=== PATIENT | male | born 1965 | race Caucasian/White ===

== ENCOUNTER → 2016-12-11 | Day surgery (SDC) | payer OTHER ==
[~2016-12-11] VITALS: Ht 185.4 cm; Wt 139.0 kg
[2016-12-11 07:38] LABS: HCT 41.6 % (42.0-52.0); HGB 14.6 g/dl (13.2-18.0); MCH 31.8 pg (25.0-31.0); MCHC 35.1 g/dL (32.0-36.0); MCV 90.6 fL (78.0-100.0); MPV 9.1 fL (6.0-9.5); RBC 4.59 M/uL (4.70-6.00); RDW 11.9 % (11.5-14.0); WBC 7.3 K/uL (4.0-10.5)
[2016-12-11 07:50] LABS: CREATININE 0.9 mg/dL (0.7-1.2); POTASSIUM 3.7 mmol/L (3.5-5.1)
== END | disposition home or self-care (01) ==
LOC: FAS 07:37
PROVIDERS: Surgery
DX: K42.0 Umbilical hernia with obstruction, without gangrene (principal); E11.9 Type 2 diabetes mellitus without complications; I10 Essential (primary) hypertension; E78.5 Hyperlipidemia, unspecified; G47.30 Sleep apnea, unspecified; Z79.899 Other long term (current) drug therapy; Z99.89 Dependence on other enabling machines and devices
CPT/HCPCS: 36415; 80048; 93005; C1781; J1170; J2704; J3010